=== PATIENT | male | born 1985 | race Two or more races ===

== ENCOUNTER 2024-03-13 21:02 | Emergency (ER) | payer OTHER ==
[~2024-03-13] VITALS: Ht 193 cm; Wt 125.0 kg
[2024-03-13] MEDS: KETOROLAC TROMETH 60MG/2ML VIAL IM ONE (22:00)
[2024-03-13] MEDS: HYDROcodone-ACET 5/325MG TAB PO ONE (22:00)
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
[2024-03-13 23:29] VITALS: BP 113/60; PULSE 101; RESP 14; TEMP 98.2; O2SAT 93
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
[2024-03-14] MEDS ORDERED: HYDR-4902 PO (00:05)
[2024-03-14] MEDS ORDERED: IBUP-1455 PO (00:05)
== END 2024-03-14 02:40 | disposition home or self-care (01) ==
LOC: ER 21:02 → EDBD 21:02 → ER 03-14 02:40
DX: S30.1XXA Contusion of abdominal wall, initial encounter (principal); S20.219A Contusion of unspecified front wall of thorax, initial encounter; F10.129 Alcohol abuse with intoxication, unspecified; E66.9 Obesity, unspecified; V89.2XXA Person injured in unspecified motor-vehicle accident, traffic, initial encounter; Y93.I9 Activity, other involving external motion; Y92.488 Other paved roadways as the place of occurrence of the external cause; Y99.8 Other external cause status
CPT/HCPCS: 71250; 74176; J1885